=== PATIENT | male | born 1975 | race Caucasian/White ===

== ENCOUNTER 2020-08-30 23:16 | Emergency (ER) | payer SELFPAY ==
[~2020-08-30] VITALS: Ht 172.7 cm; Wt 84.8 kg
[2020-08-31 00:07] VITALS: BP 140/88
== END 2020-08-31 00:10 | disposition home or self-care (01) ==
LOC: ED 08-31 00:06
DX: Z00.8 Encounter for other general examination (principal); F23 Brief psychotic disorder; F17.210 Nicotine dependence, cigarettes, uncomplicated
CPT/HCPCS: 99281; 99406

== ENCOUNTER 2021-02-04 23:29 | Emergency (ER) | payer SELFPAY ==
[~2021-02-04] VITALS: Ht 172.7 cm; Wt 82.1 kg
[2021-02-04 23:31] VITALS: BP 163/96
--- NOTE | 2021-02-05 00:02 | NUR ---
Patient given discharge instructions and they have confirmed that they understand the instructions. Patient ambulatory with steady gait. NAD, all questions answered appropriately, denies additional needs at this time. No personal belongings left in room after discharge.
== END 2021-02-05 00:03 | disposition home or self-care (01) ==
LOC: ED 02-05
DX: H60.502 Unspecified acute noninfective otitis externa, left ear (principal); H10.022 Other mucopurulent conjunctivitis, left eye
CPT/HCPCS: 99283